=== PATIENT | female | born 1975 | race Caucasian/White ===

== ENCOUNTER 2022-11-20 09:08 | Emergency (ER) | payer MEDICAID ==
[~2022-11-20] VITALS: Ht 167.6 cm; Wt 67.6 kg
[2022-11-20 09:20] VITALS: BP 132/79
--- NOTE | 2022-11-20 10:05 | NUR ---
Patient ambulated to bed 5.
--- NOTE | 2022-11-20 10:15 | NUR ---
47 y/o female bib self with c/o bug bite to left leg x 4 days ago. Per patient, she went to [facility] on 11/18/22 and was told everything was normal. Patient reports tingling sensation from knees to toes. Patient is only noted with 2 bumps from a bug bite to left leg. Patient is not noted with any swelling or heat to left leg. Patient has a limp when ambulating from pain. Medical History: HTN NKDA
--- NOTE | 2022-11-20 10:45 | NUR ---
Patient being evaluated by physician at bedside.
[2022-11-20] MEDS ORDERED: KETOROLAC 15 MG/ML VIAL IM ONE (10:50)
[2022-11-20] MEDS ORDERED: ACETAMINOPHEN EXTRA STRENGTH 500 MG TAB PO ONE (10:50)
[2022-11-20] MEDS ORDERED: cephALEXin 500 MG CAP PO ONE (10:50)
[2022-11-20] MEDS ORDERED: ACET-10509 PO (11:26)
[2022-11-20] MEDS ORDERED: CEPH-588 PO (11:26)
[2022-11-20] MEDS ORDERED: BACI-416 TP (11:27)
--- NOTE | 2022-11-20 11:45 | NUR ---
Patient discharged with v/s stable. Written and verbal after care instructions given and explained. Patient alert, oriented and verbalized understanding of instructions. Ambulatory with to home. All questions addressed prior to discharge. ID band removed. Patient advised to follow up with PMD. Rx of BACITRACIN, KEFLEX, TYLENOL given. Patient educated on indication of medication including possible reaction and side effects. Opportunity to ask questions provided and answered.
== END 2022-11-20 11:45 | disposition home or self-care (01) ==
LOC: MED 09:08
DX: S91.332A Puncture wound without foreign body, left foot, initial encounter (principal); L03.116 Cellulitis of left lower limb; Z79.899 Other long term (current) drug therapy; W57.XXXA Bitten or stung by nonvenomous insect and other nonvenomous arthropods, initial encounter; Y93.89 Activity, other specified; Y92.89 Other specified places as the place of occurrence of the external cause; Y99.8 Other external cause status
CPT/HCPCS: 99283